=== PATIENT | female | born 2000 | race Hispanic/Latino ===

== ENCOUNTER 2022-10-24 14:50 | Emergency (ER) | payer OTHER ==
[~2022-10-24] VITALS: Ht 157.5 cm; Wt 115.2 kg
[2022-10-24 15:27] VITALS: BP 147/93
[2022-10-24] MEDS ORDERED: ACETAMINOPHEN 500 MG TABLET PO ONE (16:00)
[2022-10-24] MEDS ORDERED: IBUP-2070 PO (16:46)
== END 2022-10-24 16:53 | disposition home or self-care (01) ==
LOC: EDH 14:50
DX: J02.9 Acute pharyngitis, unspecified (principal); Z20.822 Contact with and (suspected) exposure to COVID-19
CPT/HCPCS: 99283; 87635; 87880; 87804 ×2; C9803

== ENCOUNTER 2022-12-04 08:43 | Emergency (ER) | payer OTHER ==
[~2022-12-04] VITALS: Ht 157.5 cm; Wt 115.2 kg
[~2022-12-04 08:43] MED LIST: IBUP-2070 PO
[2022-12-04 08:45] VITALS: BP 133/87
[2022-12-04] MEDS ORDERED: CEPH500B PO (09:14)
== END 2022-12-04 09:56 | disposition home or self-care (01) ==
LOC: EDH 08:43
DX: H00.024 Hordeolum internum left upper eyelid (principal); Z79.1 Long term (current) use of non-steroidal anti-inflammatories (NSAID)

== ENCOUNTER 2022-12-29 11:15 | Emergency (ER) | payer OTHER ==
[~2022-12-29] VITALS: Ht 154.9 cm; Wt 113.4 kg
[~2022-12-29 11:15] MED LIST changes: +CEPH500B PO
[2022-12-29 12:02] VITALS: BP 125/79
[2022-12-29 12:08] LABS: BASOPHILS % (AUTO) 0.5 % (0.0-5.0); EOSINOPHILS % (AUTO) 1.2 % (0.0-8.0); HEMATOCRIT 44.5 % (36-48); LYMPHOCYTES % (AUTO) 23.1 % (21.0-51.0); MEAN CORPUSCULAR HEMOGLOBIN 28.9 pg (27.0-33.0); MEAN CORPUSCULAR HGB CONC 32.6 g/dL (32.0-36.0); MEAN CORPUSCULAR VOLUME 88.6 fL (79-99); MONOCYTES % (AUTO) 5.1 % (3.0-13.0); NEUTROPHILS % (AUTO) 69.8 % (40.0-77.0); PLATELET COUNT (AUTO) 346 K/uL (130-400); RED BLOOD CELL COUNT(AUTO) 5.02 MIL/uL (4.00-5.50); RED CELL DISTRIBUTION WIDTH 13.7 % (11.0-15.5); WHITE BLOOD COUNT (AUTO) 11.3 K/uL (4.8-10.8)
[2022-12-29 12:17] LABS: CREATININE 0.8 mg/dL (0.5-1.5); POTASSIUM 3.8 mmol/L (3.5-5.1)
[2022-12-29 12:20] LABS: APPEARANCE,URINE CLEAR (CLEAR); BILIRUBIN,URINE NEGATIVE (NEGATIVE); COLOR,URINE YELLOW (YELLOW); GLUCOSE, URINE (UA) NEGATIVE (NEGATIVE); KETONES,URINE NEGATIVE (NEGATIVE); LEUKOCYTE ESTERASE ,URINE NEGATIVE Leu/uL (NEGATIVE); NITRATE,URINE NEGATIVE (NEGATIVE); OCCULT BLOOD,URINE NEGATIVE (NEGATIVE); PROTEIN,URINE 20 mg/dL (NEGATIVE); UROBILINOGEN,URINE 0.2 mg/dL (0.2-1.0)
[2022-12-29 12:22] LABS: ALBUMIN 3.8 g/dL (3.5-5.0); TOTAL PROTEIN, SERUM 7.8 g/dL (6.0-8.3)
[2022-12-29 12:24] LABS: HCG,QUALITATIVE URINE NEGATIVE (NEGATIVE)
[2022-12-29 12:29] LABS: BACTERIA,URINE RARE /HPF (None Seen); MUCUS,URINE MOD LPF (None Seen); RBC,URINE 0-1 /HPF (0-1); SQUAMOUS EPITHELIAL CELL,UR FEW /HPF (0-2)
[2022-12-29] MEDS ORDERED: IBUP-2070 PO (13:20)
[2022-12-29] MEDS ORDERED: SULF1TAB42 PO (13:20)
== END 2022-12-29 13:36 | disposition home or self-care (01) ==
LOC: EDH 11:15
DX: L03.211 Cellulitis of face (principal); Z79.899 Other long term (current) drug therapy
CPT/HCPCS: 36415; 80053; 81001; 81025; 85025

== ENCOUNTER 2025-01-31 14:07 | Emergency (ER) | payer BC ==
[~2025-01-31] VITALS: Ht 157.5 cm; Wt 113.4 kg
[~2025-01-31 14:07] MED LIST changes: +SULF1TAB42 PO
[2025-01-31 15:15] VITALS: PULSE 91; RESP 20
--- NOTE | 2025-01-31 15:15 | HMCIMG ---
PORTABLE CHEST RADIOGRAPH INDICATION: COUGH COMPARISON: None FINDINGS: Heart size is normal. The pulmonary vascularity and kimberly appear normal. No abnormal pulmonary parenchymal opacity or consolidation identified. No significant pleural effusion noted. No pneumothorax detected. IMPRESSION: No radiographic evidence for any acute cardiopulmonary process.
[2025-01-31] MEDS: IpraTROPium/alBUTERol SULFATE 3 ML SOLUTION IH ONE (15:40)
[2025-01-31 15:48] LABS: HEMATOCRIT 44.7 % (36-48); MEAN CORPUSCULAR HEMOGLOBIN 30.2 pg (27.0-33.0); MEAN CORPUSCULAR HGB CONC 32.9 g/dL (32.0-36.0); MEAN CORPUSCULAR VOLUME 91.8 fL (79-99); PLATELET COUNT (AUTO) 275 K/uL (130-400); RED BLOOD CELL COUNT(AUTO) 4.87 MIL/uL (4.00-5.50); RED CELL DISTRIBUTION WIDTH 12.8 % (11.0-15.5); WHITE BLOOD COUNT (AUTO) 8.1 K/uL (4.8-10.8)
[2025-01-31 15:59] LABS: CREATININE 0.9 mg/dL (0.5-1.0); POTASSIUM 3.2 mmol/L (3.5-5.1)
[2025-01-31 16:24] LABS: RAPID GROUP A STREP negative (NEGATIVE)
--- NOTE | 2025-01-31 16:26 | ERN ---
ED Note History of Present Illness Stated Complaint: POSSIBLE FLU Chief Complaint: Flu Symptoms Time Seen by MD: 14:15 Dictation: History of present illness: 24-year-old female past medical history of asthma presented to ED with complaints of cough, sore throat and headaches since yesterday morning. She works as a front desk officer and since that she has got a flu. Cough is productive with white sputum with bouts of cough at a time. She denies any chest pain, shortness of breath, nausea, vomiting, fever. At the time of presentation, temperature is 99.7, pulse rate is 97, respiratory rate is 20, blood pressure is 148/88, SpO2 is 98% on room air. Allergies: Coded Allergies: No Known Allergies (Unverified Allergy, Unknown, 12/04/22) Home Meds Active Scripts Ibuprofen (Ibuprofen) 600 Mg Tablet, 600 MG PO Q6H PRN for PAIN, #30 TAB Prov:[facility] 12/29/22 Sulfamethoxazole/Trimethoprim (Bactrim Ds Tablet) 1 Each Tablet, 1 TAB PO BID for 7 Days, #14 TAB 0 Refills Prov:[facility] 12/29/22 Cephalexin Monohydrate (Keflex) 500 Mg Cap, 500 MG PO TID for 7 Days, #21 CAP 0 Refills Prov:VIRAL GAYTAN MD 12/04/22 Ibuprofen (Ibuprofen) 600 Mg Tablet, 600 MG PO Q6H PRN for PAIN, #30 TAB Prov:TIM LARRY V [employer] 10/24/22 Past Medical History Past Medical History: Asthma Surgical History: None Social History: Negative, Lives with family LMP: Dec 21, 2024 Review of System Dictation REVIEW OF SYSTEMS Positive for cough, sore throat, headaches CONSTITUTIONAL: Denies fevers, chills, or night sweats. No unintentional weight loss reported. ENT: No hearing loss, otalgia, otorrhea, rhinitis, rhinorrhea, hoarseness, or sore throat. CARDIOVASCULAR: Denies any exertional angina, dyspnea on exertion, orthopnea, paroxysmal nocturnal dyspnea, palpitations claudication. PULMONARY: Denies any shortness of breath, cough, phlegm / sputum, hemoptysis, pleuritic chest pain. SLEEP: Denies morning headaches, daytime somnolence or napping. Denies difficulty falling asleep, staying asleep, waking from sleep. Denies knowledge of snoring. GASTROINTESTINAL: Denies any type of dysphagia to either liquids or solids. Denies nausea, vomiting, abdominal pain, diarrhea, constipation, blood in stools . NEUROLOGICAL: Denies headache, motor weakness, sensory deficit, vertigo / spinning sensation, gait abnormalities, or tremors. GENITOURINARY: Denies frequency, urgency, nocturia, hematuria or incontinence, low urinary stream, straining to void, urinary intermittency or hesitancy ENDOCRINOLOGY: Denies polyuria, polydipsia, polyphagia or heat / cold intolerance. HEMATOLOGY: Denies thrombophilia / previous clots, or coagulopathy / bleeding disorders. ONCOLOGIC: Denies personal history of malignancy. DERMATOLOGIC: Denies rashes or pruritus. PSYCHIATRIC: Denies any suicidal or homicidal ideation. Denies hallucinations. Initial Vital Sign VS Vital Signs Date Time Temp Pulse Resp B/P (MAP) Pulse Ox O2 Delivery O2 Flow Rate FiO2 01/31/25 14:10 99.7 97 20 148/88 98 Room Air 0 Physical Exam Dictation PHYSICAL EXAM Febrile, erythematous posterior oropharynx GENERAL APPEARANCE: Well nourished . Awake and alert. Oriented to time, place and person. No acute cardiopulmonary distress. HEENT: Head normocephalic , atraumatic. Sclera anicteric . Pupils are round and reactive. Extraocular movements intact . No conjunctival injection. No nasal congestion. No throat congestion .Oral mucosa moist. NECK: Supple. No JVD. No thyromegaly. No submental, submandibular, pre-/postau ricular, occipital or supraclavicular lymphadenopathy. No carotid bruits. CHEST: Normal chest expansion. No Telemetry. LUNGS: Clear to auscultation bilaterally . No rales, rhonchi or any wheezing. Equal tactile fremitus. Resonant to percussion . CARDIOVASCULAR: Regular rate and rhythm. S1 and S2 normal. No rubs, murmurs or gallops. ABDOMEN: Soft, nontender, and nondistended. There is no rebound tenderness, voluntary guarding, or rigidity. No hepatosplenomegaly. Bowel sounds normal in all four quadrants . NEUROLOGICAL: Cranial nerves II-XII grossly intact. Motor is 5/5 in bilateral upper and lower extremities . No sensory deficits. EXTREMITIES: No edema, No cyanosis , No clubbing. Good capillary refill. SKIN: No skin breakdown. No rashes or lesions . PSYCHIATRY: Normal affect .No auditory or visual hallucinations. Normal speech. No dysarthria. Results (Laboratory/Radiology) Laboratory/Radiology Laboratory Tests Test 01/31/25 15:40 01/31/25 16:01 White Blood Count 8.1 K/uL (4.8-10.8) Red Blood Count 4.87 MIL/uL (4.00-5.50) Hemoglobin 14.7 g/dL (12.0-16.0) Hematocrit 44.7 % (36-48) Mean Corpuscular Volume 91.8 fL (79-99) Mean Corpuscular Hemoglobin 30.2 pg (27.0-33.0) Mean Corpuscular Hemoglobin Concent 32.9 g/dL (32.0-36.0) Red Cell Distribution Width 12.8 % (11.0-15.5) Platelet Count 275 K/uL (130-400) Mean Platelet Volume 10.1 fL (7.5-10.5) Immature Granulocyte % (Auto) 0.4 % (0-1) Neutrophils (%) (Auto) 70.3 % (40.0-77.0) Lymphocytes (%) (Auto) 20.7 % (21.0-51.0) L Monocytes (%) (Auto) 7.3 % (3.0-13.0) Eosinophils (%) (Auto) 0.8 % (0.0-8.0) Basophils (%) (Auto) 0.5 % (0.0-5.0) Neutrophils # (Auto) 5.8 K/uL (1.8-7.7) Lymphocytes # (Auto) 1.7 K/uL (1.0-4.8) Monocytes # (Auto) 0.6 K/uL (0.1-1.0) Eosinophils # (Auto) 0.07 K/uL (0.00-0.70) Basophils # (Auto) 0.04 K/uL (0.00-0.20) Absolute Immature Granulocyte (auto 0.03 K/uL (0-1) Nucleated Red Blood Cells 0.0 % (0.0-0.19) Sodium Level 136 mmol/L (136-145) Potassium Level 3.2 mmol/L (3.5-5.1) L Chloride Level 100 mmol/L (101-111) L Carbon Dioxide Level 28 mmol/L (21-32) Blood Urea Nitrogen 5 mg/dL (7-18) L Creatinine 0.9 mg/dL (0.5-1.0) Glomerular Filtration Rate Calc 92 mL/min (>90) Random Glucose 123 mg/dL (70-105) H Total Calcium 8.6 mg/dL (8.5-10.1) Influenza Type A Antigen Negative For Type A Influenza Type B Antigen Negative For Type B SARS-CoV-2 Antigen (Rapid) POSITIVE FOR SARS AG Group A Streptococcus Rapid negative (NEGATIVE) ED Course ED Course Orders Procedure Category Date Status Time Influenza Type A & B, LAB 01/31/25 Complete Rapid 14:28 Covid19 (Sars Antigen LAB 01/31/25 Complete Rapid) 14:28 Rapid (Group A Strep) LAB 01/31/25 Complete 14:28 Basic Metabolic Panel LAB 01/31/25 Complete 14:28 Chest 1vw RAD 01/31/25 Resulted 14:28 Ipratropium/Albuterol PHA 01/31/25 Complete Neb (Duoneb) 14:30 Cbc With Differential LAB 01/31/25 Complete 15:40 Current Medications Medications (Trade) Dose Ordered Sig/Gianfranco Route PRN Reason Start Time Stop Time Status Last Admin Dose Admin Albuterol (DUOneb) 1 UDVIAL ONCE ONCE IH 01/31/25 14:30 01/31/25 14:34 DC 01/31/25 15:40 Vital Signs Date Time Temp Pulse Resp B/P (MAP) Pulse Ox O2 Delivery O2 Flow Rate FiO2 01/31/25 15:15 91 20 01/31/25 14:10 99.7 97 20 148/88 98 Room Air 0 Medical Decision Making MDM Differential diagnosis : Flu, strep, COVID, asthma exacerbation Rationale: Tests considered and ordered secondary to shared decision making include: I will re-evaluate the patient after treatment and diagnostic exams have returned to determine whether they require further testing, can be safely discharged home, or need admission for further treatment and evaluation. Given the social determinants of health affecting care, including literacy, access to medical care, prescription drug management, and [id number] drugs, I will ensure that treatment plans are tailored accordingly. There are no social concerns with this patient. Risk of complication and/or morbidity or mortality of patient management: None Need for hospitalization: Patient does not meet criteria for hospitalization. Need for emergency major/minor surgery: No Prescription drug management Prescriptions will include symptomatic care Medications-Per medication reconciliation Previous outside records reviewed: Old ER visits. Patient's prior external medical records from other ER visits were reviewed by me as indicated. Prior testing and results from previous visits were reviewed. Prior tests were taken into account with medical decision making and resource utilization, independent historian/historians were used to obtain complete medical history. I independently interpreted the test that were performed, results were reviewed by me and considered findings on radiology. Medical management and examination interpretation discussions was done by me with other qualified healthcare professionals as indicated for the patient's care. Revaluation: Patient said that she feels better and decrease in cough after nebulization. Her chest x-ray is unremarkable. Potassium is 3.2. Her serology positive for COVID-19. We will start her on Molnupiravir. Disposition : Home DX & DISP Disposition: Discharge Departure Impression: Primary Impression: COVID-19 Additional Impressions: Upper respiratory infection, Asthma Condition: Stable Scripts Molnupiravir (Molnupiravir (Eua)) 200 Mg Capsule 4 CAP PO BID for 5 Days, #40 CAP 0 Refills Prov: OSMANI LOPEZ MD 01/31/25 Additional Instructions: Patient is diagnosed with COVID-19 and is started on molnupiravir. Possible side effects of the medication is not limited to diarrhea, nausea, dizziness. Follow-up with primary care provider in 1-2 days Take medications as directed here in the emergency room. It is okay to continue home medications unless otherwise discussed during your visit in the emergency room today. Increase oral hydration. Return to your nearest emergency room if symptoms worsen or if there is no improvement. Call 911 if you need immediate assistance. Referrals: SELF,REFERRAL (PCP) OSMANI LOPEZ MD Jan 31, 2025 16:26
[2025-01-31 16:35] LABS: INFLUENZA TYPE A Negative For Type A (NEGATIVE); INFLUENZA TYPE B Negative For Type B (NEGATIVE)
[2025-01-31 16:45] LABS: BASOPHILS # (AUTO) 0.04 K/uL (0.00-0.20); BASOPHILS % (AUTO) 0.5 % (0.0-5.0); EOSINOPHILS # (AUTO) 0.07 K/uL (0.00-0.70); EOSINOPHILS % (AUTO) 0.8 % (0.0-8.0); IMMATURE GRANULOCYTE ABSOLUTE 0.03 K/uL (0-1); LYMPHOCYTES # (AUTO) 1.7 K/uL (1.0-4.8); LYMPHOCYTES % (AUTO) 20.7 % (21.0-51.0); MONOCYTES # (AUTO) 0.6 K/uL (0.1-1.0); MONOCYTES % (AUTO) 7.3 % (3.0-13.0); NEUTROPHILS # (AUTO) 5.8 K/uL (1.8-7.7); NEUTROPHILS % (AUTO) 70.3 % (40.0-77.0)
[2025-01-31 16:53] LABS: COVID19 (SARS ANTIGEN RAPID) POSITIVE FOR SARS AG (NEGATIVE)
[2025-01-31] MEDS ORDERED: MOLN200C PO (17:00)
[2025-01-31] MEDS: PoTASSium BIcarbonate/CIT AC 25 MEQ TABLET.EFF PO ONE (17:38)
[2025-01-31 17:45] VITALS: BP 141/89; PULSE 90; RESP 18; TEMP 99; O2SAT 98
== END 2025-01-31 18:02 | disposition home or self-care (01) ==
LOC: EDH 14:07
DX: U07.1 COVID-19 (principal); J06.9 Acute upper respiratory infection, unspecified; J45.909 Unspecified asthma, uncomplicated; Z20.822 Contact with and (suspected) exposure to COVID-19
CPT/HCPCS: 36415; 71045; 80048; 85025; 87426; 87804; 87880; 94640; 99283